=== PATIENT | female | born 1960 | race American Indian/Alaskan Native ===

== ENCOUNTER 2018-08-15 15:28 | Observation (INO) | payer OTHER ==
--- OUTSIDE RECORDS SUMMARY | 2018-08-15 15:31 | XMS REPORT | Continuity of Care Document ---
:1960 Author Organization [facility] Care Team Providers Name Role Phone MD Chely, Art Unavailable Unavailable Insurance Providers Payer name Policy type / Coverage Policy ID Covered democrat ID Policy Blanco type UNLISTED COMM CARRIER SECONDAR PPO PRIMARY UNLISTED COMM CARRIER SECONDAR HUMANA - [facility] CODY AND [employer] ( SUPPLEMENT) CODY AND [employer] ( SUPPLEMENT) Encounters Encounter Performer Location Date Lab Report Art MD Chely [facility] Medical [facility] Jun 20, 2014 Practice Allergies, Adverse Reactions, Alerts Type Substance Reaction Status Food allergy SIMVASTATIN Active Problems Problem Effective Dates Problem Status CHEST PAIN Jan 19, 2012 Active ANXIETY Jan 19, 2012 Active SLEEP DEPRIVATION Jan 19, 2012 Active MENOPAUSAL SYNDROME Jan 19, 2012 Active GLOSSITIS Sep 27, 2012 Inactive PREMATURE VENTRICULAR CONTRACTIONS Jun 20, 2014 Active DIZZINESS Jun 20, 2014 Active ABDOMINAL PAIN RIGHT LOWER QUADRANT Jun 20, 2014 Active Procedures Date Description Comments August 11, 2011 mammogram Done August 11, 2011 vaginal Pap smear results Done August 11, 2011 vaginal Pap smear results Complete Jan 19, 2012 smoking status never smoker Jun 20, 2014 smoking status Never smoker Medications Medication Instructions Start Date Status NECON (28) 1-35 MG-MCG TABS 1 PO daily Inactive MULTIVITAMINS CAPS 1 cap po once daily Jun 20, 2014 Active [facility] MAGNESIUM TABS 1 tab po once daily Jun 20, 2014 Active CALCIUM CAPS 1 tab po once daily Jun 20, 2014 Active ZINC TABS 1 tab po once daily Jun 20, 2014 Active Immunizations Vaccine Date Status dT (Diphtheria and Tetanus) booster given Feb 20, 1997 completed TB-PPD (tuberculin purified protein derivative), intradermal Nov 13, 2007 completed administration influenza immunization (Flu Vax) has been administered Jan 19, 2012 completed Vital Signs Date Description Test Result Jan 19, 2012 height E&M - 8302-2 HEIGHT 66 in Jan 19, 2012 weight E&M - 3141-9 WEIGHT 195.6 lb Jan 19, 2012 temperature E&M TEMPERATURE 97.8 deg f Jan 19, 2012 pulse rate E&M - 8867-4 PULSE RATE 80 /min Jan 19, 2012 blood pressure, systolic - 8480-6 BP SYSTOLIC 132 mm Hg Jan 19, 2012 blood pressure, diastolic - 8462-4 BP DIASTOLIC 78 mm Hg Jan 19, 2012 respiratory rate E&M - 9279-1 RESP RATE 20 /min Sep 27, 2012 weight E&M - 3141-9 WEIGHT 207 lb Sep 27, 2012 temperature E&M TEMPERATURE 97.9 deg f Sep 27, 2012 pulse rate E&M - 8867-4 PULSE RATE 68 /min Sep 27, 2012 blood pressure, systolic - 8480-6 BP SYSTOLIC 140 mm Hg Sep 27, 2012 blood pressure, diastolic - 8462-4 BP DIASTOLIC 92 mm Hg Sep 27, 2012 respiratory rate E&M - 9279-1 RESP RATE 14 /min Jun 20, 2014 weight E&M - 3141-9 WEIGHT 200 lb Jun 20, 2014 temperature E&M TEMPERATURE 98.1 deg f Jun 20, 2014 pulse rate E&M - 8867-4 PULSE RATE 68 /min Jun 20, 2014 blood pressure, systolic - 8480-6 BP SYSTOLIC 147 mm Hg Jun 20, 2014 blood pressure, diastolic - 8462-4 BP DIASTOLIC 96 mm Hg Jun 20, 2014 respiratory rate E&M - 9279-1 RESP RATE 16 /min Jun 20, 2014 blood pressure, systolic, second observation BP SYS #2 140 mm Hg Jun 20, 2014 blood pressure, diastolic, second observation BP MARIBETH #2 84 mm Hg Results Date Description Test Name Value Reference Interpretation Status Sep 17, thyroid TSH 1.37 uIU/mL 2012 stimulating hormone, serum August 10, vaginal Pap smear PAP SMEAR Done null 2011 results August 10, vaginal Pap smear PAP SMEAR Complete null 2011 results
--- OUTSIDE RECORDS SUMMARY | 2018-08-15 15:31 | XMS REPORT | Continuity of Care Document ---
:1960 Author Organization [facility] Care Team Providers Name Role Phone MD Chely, Art Unavailable Unavailable Insurance Providers Payer name Policy type / Coverage Policy ID Covered green party ID Policy Blanco type UNLISTED COMM CARRIER SECONDAR PPO PRIMARY UNLISTED COMM CARRIER SECONDAR HUMANA - [facility] CODY AND [employer] ( SUPPLEMENT) CODY AND [employer] ( SUPPLEMENT) Encounters Encounter Performer Location Date Lab Report Art MD Chely [facility] Medical [facility] Jun 20, 2014 Practice Allergies, [...] Description Test Name Value Reference Interpretation Status Jun 20, hemoglobin, blood HGB 15.6 g/dL 12.0-15.0 High 2014Jun 20, hematocrit, blood HCT 46.8 % 35.0-43.8 High 2014Sep 17, thyroid TSH 1.37 uIU/mL 2013 stimulating hormone, serum Jun 20, sodium, serum SODIUM 144 mmol/L 136-142 High 2014Jun 20, potassium, serum POTASSIUM 4.1 mmol/L 3.3-5.0 2014Jun 20, urea nitrogen, BUN 11 mg/dL 8-20 2014Jun 20, creatinine, serum CREATININE 0.66 mg/dL 0.46-1.20 2014Jun 20, calcium, serum CALCIUM 10.3 mg/dL 8.8-10.0 High 2014Jun 20, cholesterol, CHOLESTEROL 218 mg/dl 120-200 High 2014Jun 20, HDL cholesterol, HDL 46 mg/dl 31-79 2014 serum Jun 20, LDL cholesterol, LDL 131 mg/dl 0-130 High 2015 serum Jun 20, magnesium, serum MAGNESIUM 2.1 mg/dL 1.9-2.5 2014Jun 20, thyroid TSH 0.84 uIU/mL 0.34-5.60 2014 stimulating hormone, serum August 10, vaginal Pap smear PAP SMEAR Done null 2011 results August 10, vaginal Pap smear PAP SMEAR Complete null 2011 results
--- OUTSIDE RECORDS SUMMARY | 2018-08-15 15:31 | XMS REPORT | Continuity of Care Document ---
:1960 Author Organization Interface Problems Problem Status Onset Classification Date Comments Source Date Reported Z12.31 - ENCNTR Active 10/30/19 [facility] SCREEN 17 [place] MAMMOGRAM FOR MA BODY MASS INDEX Active 09/04/19 Condition 09/03/2014 Medical 32.0-32.9, 15 Group ADULT FRACTURE, Active 09/04/19 Condition 09/03/2014 Medical METATARSUS 15 Group Closed fracture Active 09/04/19 Problem 08/09/2018 Data migrated MH [facility] of metatarsal 15 from [facility] bone<sup>1</sup [facility] [place], > 10/16/14. Medical Group CERVICAL POLYP Active 07/05/19 Condition 09/03/2014 Medical 15 Group OVARIAN CYST, Active 07/05/19 Condition 09/03/2014 Medical RIGHT 15 Group WELL WOMAN Active 07/05/19 Condition 09/03/2014 Medical 15 Group HYPERTENSION - Active 07/05/19 Condition 09/03/2014 Medical BENIGN 15 Group ESSENTIAL UTERINE FIBROID Active 07/05/19 Condition 09/03/2014 Medical 15 Group Cyst of Active 07/05/19 Problem 08/09/2018 Data migrated MH [facility] ovary<sup>2</putnam 15 from [facility] p> [facility] [place], 10/16/14. Medical Group Osteoporosis<putnam Active 07/05/19 Problem 08/09/2018 Data migrated MH [facility] p>4, 5</sup> 15 from [facility] [place], 10/16/14. Medical Group Polyp of Active 07/05/19 Problem 08/09/2018 Data migrated MH [facility] cervix<sup>6</s 15 from [facility] up> [facility] [place], 10/16/14. Medical Group Uterine Active 07/05/19 Problem 08/09/2018 Data migrated MH [facility] leiomyoma<sup>7 15 from [facility] , 8</sup> [place], 10/16/14. Medical Group Well female Active 07/05/19 Problem 08/09/2018 Data migrated [facility] adult<sup>10, 15 from [facility] 11</sup> [facility] [place], 10/16/14. Medical Group PREMATURE Active 06/21/19 Condition 09/03/2014 Medical VENTRICULAR 15 Group CONTRACTIONS DIZZINESS Active 06/21/19 Condition 09/03/2014 Medical 15 Group ABDOMINAL PAIN Active 06/21/19 Condition 09/03/2014 Medical RIGHT LOWER 15 Group QUADRANT Dizziness<sup>3 Active 06/21/19 Problem 08/09/2018 Data migrated [facility] </sup> 15 from [facility] [place], 10/16/14. Medical Group Ventricular Active 06/21/19 Problem 08/09/2018 Data migrated [facility] premature 15 from [facility] beats<sup>9</putnam [facility] [place], p> 10/16/14. Medical Group GLOSSITIS Inactive 09/28/19 Condition 09/03/2014 Medical 13 Group CHEST PAIN Active 01/19/20 Condition 09/03/2014 Medical 12 Group ANXIETY Active 01/19/20 Condition 09/03/2014 Medical 12 Group SLEEP Active 01/19/20 Condition 09/03/2014 Medical DEPRIVATION 12 Group MENOPAUSAL Active 01/19/20 Condition 09/03/2014 Medical SYNDROME 12 Group Obesity Active Problem 08/09/2018 [facility] [place], Medical Group Medications Medication Details Route Status Patient Ordering Order Source Instructions Provider Date benazepril 20 mg See Active oral tablet Instructions 018 Medical , TAKE 1 Group TABLET BY MOUTH DAILY, # 90 tab, 1 Refill(s), Pharmacy: [facility] amLODIPine 5 mg See No oral tablet Instructions Longer 018 Medical , TAKE 1 Active Group TABLET BY MOUTH DAILY, # 90 tab, 1 Refill(s), Pharmacy: [facility] pantoprazole 40 40 mg=1 tab, Active mg oral enteric PO, Daily, # 018 Medical coated tablet 30 tab, 1 Group Refill(s), Pharmacy: [facility] [id number] latanoprost 0.05 1 drp, QPM, Active MG/ML Ophthalmic 0 Refill(s) 018 Medical Solution Group PreserVision PO, Daily, 0 Active AREDS 2 Refill(s) 018 Medical Group benazepril 20 mg See No oral tablet Instructions Longer 018 Medical , # 90 tab, Active Group TAKE 1 TABLET BY MOUTH DAILY, Pharmacy: [facility] [id number] Ondansetron 8 MG 8 mg=1 tab, Active Disintegrating PO, TID, PRN 018 Medical Tablet [Zofran] Nausea and Group Vomiting, Dissolve tab under tongue, # 10 tab, 0 Refill(s), Pharmacy: [facility] [id number] Penicillin V 500 mg=1 No Potassium 500 MG tab, PO, Longer 018 Medical Oral Tablet Q8H, X 10 Active Group day, # 30 tab, 0 Refill(s), Pharmacy: [facility] [id number] magnesium amino PO, 0 Active acid chelate Refill(s) 018 Medical Group BENAZEPRIL HCL 10 1 tablet Active MG TABS daily 015 Medical Group MULTIVITAMINS 1 cap po Active CAPS once daily 015 Medical Group [facility] MAGNESIUM 1 tab po Active MH TABS once daily 015 Medical Group CALCIUM CAPS 1 tab po Active once daily 015 Medical Group ZINC TABS 1 tab po Active once daily 015 Medical Group NECON 1/35 (28) 1 PO daily No 1-35 MG-MCG TABS Longer 012 Medical Active Group Allergies, Adverse Reactions, Alerts Substance Category Reaction Severity Reaction Status Date Comments Source type Reported SIMVASTATIN Food SIMVASTATIN allergy Medical Group simvastatin Assertion Drug allergy Active Medical Group Immunizations Immunization Date Site Status Last Comments Source Given Updated influenza virus Left completed [facility] Medical vaccine, 8 Deltoid Comment: Group inactivated<sup>1< Observed for /sup> 15 minutes with no adverse reactions noted. influenza virus completed [facility] OPID vaccine, 6 History: Sugar inactivated<sup>1< Fluvirin - Land, /sup> [facility] Group influenza virus completed [facility] Medical vaccine, 6 History: Group inactivated<sup>2< Fluvirin - /sup> [facility] influenza completed Medical immunization (Flu 2 Group Vax) has been administered influenza virus completed [facility] OPID vaccine, 2 [facility], Medical Group TB-PPD (tuberculin completed [facility] purified protein 8 Group derivative), intradermal administration dT (Diphtheria and completed Medical Tetanus) booster 7 Group given tetanus-diphtheria completed [facility] OPID toxoids 7 [place], Medical Group Results Order Name Results Value Reference Date Interpretation Comments Source Range Breast Breast Mammo - BREAST MAMMO SCRN MASHA INCL CAD MA 11/05 - [facility] Mammo Scrn Scrn MASHA incl /2016 - [facility] MASHA incl CAD MA BILATERAL DIGITAL SCREENING MAMMOGRAM WITH CAD: 11/05/2016 [facility] CAD MA CLINICAL: Annual Physical/Z00.00. Read by: Ely Wilson MD Dictated Date/time: 11/05/16 12:27 Electronically Signed by: Ely Wilson MD 11/05/16 12:27 FINAL REPORT Current study was evaluated with a Computer Aided Detection (CAD) system. Comparison is made to exams dated: 07/29/2014 mammogram - [facility], 08/11/2011 mammogram and 10/28/2010 mammogram - [facility]. There are scattered fibroglandular densities in both breasts. Findings: No significant masses, calcifications, or other findings are seen in either breast. There has been no significant interval change. IMPRESSION: BENIGN There is no mammographic evidence of malignancy. A 1 year screening mammogram is recommended. Professional services are provided by the [facility]. Ely moncada/adin:11/05/2016 12:27:05 [place]: Carina Cruz RT(R), [facility] [place] exam [place] [id number] [address] [facility] [address]. letter sent: Normal exam Mammogram BI-RADS: 2 Benign Chemistry SODIUM 144 mmol/L 136 - 142 06/20 Medical Group Chemistry POTASSIUM 4.1 mmol/L 3.3 - 5.0 06/20 Medical Group Chemistry BUN 11 mg/dL 8 - 20 06/20 Medical Group Chemistry CREATININE 0.66 mg/dL 0.46 - 06/20 1.20 /2014 Medical Group Chemistry CALCIUM 10.3 mg/dL 8.8 - 10.0 06/20 Medical Group Chemistry CHOLESTEROL 218 mg/dl 120 - 200 06/20 Medical Group Chemistry HDL 46 mg/dl 31 - 79 06/20 Medical Group Chemistry LDL 131 mg/dl 0 - 130 06/20 Medical Group Chemistry MAGNESIUM 2.1 mg/dL 1.9 - 2.5 06/20 Medical Group Chemistry TSH 0.84 0.34 - 06/20 uIU/mL 5.60 /2014 Medical Group Hematology HGB 15.6 g/dL 12.0 - 06/20 15.0 Medical Group Hematology HCT 46.8 % 35.0 - 06/20 43.8 Medical Group Chemistry TSH 1.37 09/17 uIU/mL /2012 Medical Group Chemistry TSH 1.37 09/17 uIU/mL /2012 Medical Group Chemistry CHOLESTEROL 218 mg/dl 01/18 Medical Group Chemistry TRIGLYCERIDE 175 mg/dl 01/18 Medical Group Chemistry HDL 43 mg/dl 01/18 Medical Group Chemistry LDL 140 mg/dl 01/18 Medical Group Chemistry TSH 0.96 01/18 uIU/mL Medical Group Jewel Inspector PAP SMEAR Done 08/10 Medical Group Jewel Inspector PAP SMEAR Done 08/10 Medical Group Jewel Inspector PAP SMEAR Done 08/10 Medical Group Jewel Inspector PAP SMEAR Complete 08/10 Medical Group Jewel Inspector PAP SMEAR Complete 08/10 Medical Group Jewel Inspector PAP SMEAR Complete 08/10 Medical Group Chemistry CHOLESTEROL 203 mg/dl 10/16 Medical Group Chemistry TRIGLYCERIDE 248 mg/dl 10/16 Medical Group Chemistry HDL 41 mg/dl 10/16 Medical Group Chemistry LDL 112 mg/dl 10/16 Medical Group Chemistry TSH 0.94 10/16 uIU/mL Medical Group Vital Signs Vital Sign Value Date Comments Source Weight 81.932 01/20/2018 Medical Group BMI Calculated 29.15 01/20/2018 Medical Group Temperature Oral (F) 98.6 F 01/20/2018 Medical Group Heart Rate 69 01/20/2018 Medical Group Height 167.64 cm 01/20/2018 [facility] Systolic (mm Hg) 125 01/20/2018 [facility] Diastolic (mm Hg) 85 01/20/2018 Medical Group Weight 83.75 07/12/2017 Medical Group BMI Calculated 29.35 07/12/2017 [facility] Height 168.91 cm 07/12/2017 Medical Group Heart Rate 93 07/12/2017 [facility] Systolic (mm Hg) 128 07/12/2017 [facility] Diastolic (mm Hg) 85 07/12/2017 Medical Group Weight 198.4 09/03/2014 Medical Group Temperature Oral (F) 98.1 F 09/03/2014 Medical Group Respitory Rate 16 09/03/2014 Medical Group Heart Rate 74 09/03/2014 [facility] Systolic (mm Hg) 123 09/03/2014 [facility] Diastolic (mm Hg) 83 09/03/2014 Medical Group Weight 200 07/04/2014 Medical Group Temperature Oral (F) 98.0 F 07/04/2014 Medical Group Respitory Rate 16 07/04/2014 Medical Group Heart Rate 80 07/04/2014 [facility] Systolic (mm Hg) 158 07/04/2014 [facility] Diastolic (mm Hg) 92 07/04/2014 Medical Group Weight 200 06/20/2014 Medical Group Temperature Oral (F) 98.1 F 06/20/2014 Medical Group Heart Rate 68 06/20/2014 Medical Group Systolic (mm Hg) 147 06/20/2014 Medical Group Diastolic (mm Hg) 96 06/20/2014 Medical Group Respitory Rate 16 06/20/2014 Medical Group Weight 207 09/27/2012 Medical Group Temperature Oral (F) 97.9 F 09/27/2012 Medical Group Heart Rate 68 09/27/2012 Medical Group Systolic (mm Hg) 140 09/27/2012 Medical Group Diastolic (mm Hg) 92 09/27/2012 Medical Group Respitory Rate 14 09/27/2012 Medical Group Height 66 01/19/2012 Medical Group Weight 195.6 01/19/2012 Medical Group Temperature Oral (F) 97.8 F 01/19/2012 Medical Group Heart Rate 80 01/19/2012 Medical Group Systolic (mm Hg) 132 01/19/2012 Medical Group Diastolic (mm Hg) 78 01/19/2012 Medical Group Respitory Rate 20 01/19/2012 Medical Group Encounters Location Location Encounter Encounter Reason Attending ADM DC Status Source Details Type Number For Provider Date Date Visit [facility] Lab Report [id number] Art 06/20 06/20 [place] [facility] [address] Chely, /2014 Meron Arora MD [facility] Practice [facility] Lab Report [id number] Art 06/20 06/20 [place] [facility] [address] Mitz[address], /2014 Meron Arora MD [facility] Practice [facility] Outpt Diag [id number] Art 06/21 06/22 [facility] Outpatient Services [facility] /2014 [place] [facility] [place] [facility] Office [id number] Art 07/04 07/04 [place] Visit 1290 Mitzi, /2014 Meron Arora MD [facility] Practice [facility] Lab Report [id number] Art 07/04 07/04 [place] [facility] 4060 [address], /2014 Meron Arora MD [facility] Practice [facility] Outpt Diag [id number] Art 07/29 07/30 [facility] Outpatient Services /2014 [place] [facility] [place] [facility] Office [id number] Art 09/03 09/03 [place] [facility] Visit 3920 Chely, /2014 Meron Arora MD [facility] Practice Outpatient [id number] ART 05/14 Active [facility] /2015 [place] Outpatient [id number] ART 06/19 Active [facility] [place] Outpatient [id number] ART 07/15 [facility] [place] Outpatient [id number] ART 08/14 [facility] [place] Outpatient [id number] ART 09/30 [facility] Outpt Diag [id number] Art 11/05 11/06 [facility] Outpatient Services [facility] /2016 [place] [facility] [place] Outpatient [id number] PHUC 07/12 Active [facility] Outpatient [id number] Art 07/12 07/13 Primary [facility] /2017 [facility] [place] [facility] Phone [id number] 12/01 12/03 Primary [facility] /2017 [facility] [place] Outpatient [id number] JERECIA 01/20 Active [facility] [place] [facility] Outpatient [id number] Jerecia 01/20 01/21 Primary [place] /2017 [facility] [place] Outpatient [id number] PHUC 02/02 [facility] [place] Procedures Procedure Code Date Perfomer Comments Source Appendectomy [id number] 05/03/2015 [facility] [place] Appendectomy [id number] 05/03/2015 Medical Group mammogram 19247 07/30/2014 Normal Medical Bilateral Group vaginal Pap smear 73872 08/11/2011 Done Medical results Group mammogram 90618 08/11/2011 Done Medical Group vaginal Pap smear 53507 08/11/2011 Complete Medical results Group Dilatation and [id number] [facility] [place] Tooth extraction, [id number] [facility] [place] Dilatation and [id number] Medical curettage Group Tooth extraction, [id number] Medical multiple Group
--- OUTSIDE RECORDS SUMMARY | 2018-08-15 15:32 | XMS REPORT | Continuity of Care Document ---
:1960 Author Organization [facility] Care Team Providers Name Role Phone MD Chely, Art Unavailable Unavailable Insurance Providers Payer name Policy type / Coverage Policy ID Covered libertarian ID Policy Blanco type UNLISTED COMM CARRIER SECONDAR PPO PRIMARY UNLISTED COMM CARRIER SECONDAR [employer]MANA - [facility] CODY AND [employer] ( SUPPLEMENT) CODY AND [employer] ( SUPPLEMENT) Encounters Encounter Performer Location Date Office Visit Ho Mo MD [facility] Medical [facility] Practice Allergies, Adverse Reactions, Alerts Type Substance [...] RIGHT LOWER QUADRANT Jun 20, 2014 Active CERVICAL POLYP Jul 04, 2014 Active OVARIAN CYST, RIGHT Jul 04, 2014 Active WELL WOMAN Jul 04, 2014 Active HYPERTENSION - BENIGN ESSENTIAL Jul 04, 2014 Active UTERINE FIBROID Jul 04, 2014 Active BODY MASS INDEX 32.0-32.9, ADULT September 03, 2014 Active FRACTURE, METATARSUS September 03, 2014 Active Procedures Date Description Comments August 11, 2011 mammogram Done August 11, 2011 vaginal Pap smear results Done August 11, 2011 vaginal Pap smear results Complete Jan 19, 2012 smoking status never smoker Jun 20, 2014 smoking status Never smoker Jul 04, 2014 smoking status Never smoker September 03, 2014 smoking status Never smoker Jul 30, 2014 mammogram Normal Bilateral Medications Medication Instructions Start Date Status NECON (28) 1-35 MG-MCG TABS 1 PO daily Inactive MULTIVITAMINS CAPS 1 cap po once daily Jun 20, 2014 Active [facility] MAGNESIUM TABS 1 tab po once daily Jun 20, 2014 Active CALCIUM CAPS 1 tab po once daily Jun 20, 2014 Active ZINC TABS 1 tab po once daily Jun 20, 2014 Active BENAZEPRIL HCL 10 MG TABS 1 tablet daily Jul 04, 2014 Active Immunizations Vaccine Date Status dT [...] observation BP MARIBETH #2 84 mm Hg Jul 04, 2014 weight E&M - 3141-9 WEIGHT 200 lb Jul 04, 2014 temperature E&M TEMPERATURE 98.0 deg f Jul 04, 2014 respiratory rate E&M - 9279-1 RESP RATE 16 /min Jul 04, 2014 pulse rate E&M - 8867-4 PULSE RATE 80 /min Jul 04, 2014 blood pressure, systolic - 8480-6 BP SYSTOLIC 158 mm Hg Jul 04, 2014 blood pressure, diastolic - 8462-4 BP DIASTOLIC 92 mm Hg September 03, 2014 weight E&M - 3141-9 WEIGHT 198.4 lb September 03, 2014 temperature E&M TEMPERATURE 98.1 deg f September 03, 2014 respiratory rate E&M - 9279-1 RESP RATE 16 /min September 03, 2014 pulse rate E&M - 8867-4 PULSE RATE 74 /min September 03, 2014 blood pressure, systolic - 8480-6 BP SYSTOLIC 123 mm Hg September 03, 2014 blood pressure, diastolic - 8462-4 BP DIASTOLIC 83 mm Hg Results Date Description Test Name Value Reference Interpretation Status Jun 20, hemoglobin, blood HGB 15.6 g/dL 12.0-15.0 High 2014Jun 20, hematocrit, blood HCT 46.8 % 35.0-43.8 High 2014Sep 17, thyroid TSH 1.37 uIU/mL 2012 stimulating hormone, serum Jun 20, sodium, serum SODIUM 144 mmol/L 136-142 High 2014Jun 20, potassium, serum POTASSIUM 4.1 mmol/L 3.3-5.0 2014Jun 20, urea nitrogen, BUN 11 mg/dL 8-20 2014 blood Jun 20, creatinine, serum CREATININE 0.66 mg/dL 0.46-1.20 2014Jun 20, calcium, serum CALCIUM 10.3 mg/dL 8.8-10.0 High 2014Jun 20, cholesterol, CHOLESTEROL 218 mg/dl 120-200 High 2014 serum Jun 20, HDL cholesterol, HDL 46 mg/dl 31-79 2014 serum Jun 20, LDL cholesterol, LDL 131 mg/dl 0-130 High 2014 serum Jun 20, magnesium, serum MAGNESIUM 2.1 mg/dL 1.9-2.5 2014Jun 20, thyroid TSH 0.84 uIU/mL 0.34-5.60 2014 stimulating hormone, serum Jan 18, cholesterol, CHOLESTEROL 218 mg/dl 2011 serum Jan 18, triglyceride, TRIGLYCERIDE 175 mg/dl 2011 serum, fasting Jan 18, HDL cholesterol, HDL 43 mg/dl 2011 serum Jan 18, LDL cholesterol, LDL 140 mg/dl 2011 serum Jan 18, thyroid TSH 0.96 uIU/mL 2011 stimulating hormone, serum Oct 16, cholesterol, CHOLESTEROL 203 mg/dl 2010 serum Oct 16, triglyceride, TRIGLYCERIDE 248 mg/dl 2010 serum, fasting Oct 16, HDL cholesterol, HDL 41 mg/dl 2010 serum Oct 16, LDL cholesterol, LDL 112 mg/dl 2010 serum Oct 16, thyroid TSH 0.94 uIU/mL 2011 stimulating hormone, serum August 10, vaginal Pap smear PAP SMEAR Done null 2011 results August 10, vaginal Pap smear PAP SMEAR Complete 2011 results
--- OUTSIDE RECORDS SUMMARY | 2018-08-15 15:32 | XMS REPORT | Summary of Care ---
:1960 Author Encounter [facility] Pearlr_don(JACKIE) [id number] Date(s): 07/29/14 - 07/29/14 [facility] Imaging [address] Discharge Disposition: Home Physician Attending: Ho Mo MD Vital Signs No data available for this section Problem List No data available for this section Allergies, Adverse Reactions, Alerts No data available for this section Medications No data available for this section Results No data available for this section Immunizations No data available for this section Procedures No data available for this section Social History No data available for this section Assessment and Plan No data available for this section
--- OUTSIDE RECORDS SUMMARY | 2018-08-15 15:32 | XMS REPORT | Summary of Care ---
:1960 Author Organization [facility] Address [address] [place] [address]- Encounter HQ Candida_don(FIN) [id number] Date(s): 07/12/17 - 07/12/[address] [address]- [phone] Discharge Disposition: Home or Self Care Attending Physician: Ho Mo MD Vital Signs Most recent to oldest [Reference Range]: 1 Height 168.91 cm (07/12/17 7:31 AM) Blood Pressure [90-140/60-90 mmHg] 128/85 mmHg (07/12/17 7:31 AM) Peripheral Pulse Rate [60-100 bpm] 93 bpm (07/12/17 7:31 AM) Weight 83.75 kg (07/12/17 7:31 AM) Body Mass Index 29.35 m2 (07/12/17 7:31 AM) Problem List Condition Effective Dates Status Health Status Informant Closed fracture of metatarsal bone1 09/03/14 Active Cyst of ovary2 07/04/14 Active Dizziness3 06/20/14 Active Obesity(Confirmed) Active Osteoporosis4, 5 07/04/14 Active Polyp of cervix6 07/04/14 Active Uterine leiomyoma7, 8 07/04/14 Active Ventricular premature beats9 06/20/14 Active Well female adult10, 11 07/04/14 Active 1Data migrated from [employer] on 10/16/14.2Data migrated from [employer] on 10/16/14.3Data migrated from [employer] on 10/16/14.4Data migrated from [employer] on 10/16/14.5Data migrated from [employer] on 10/16/14.6Data migrated from [employer] on 10/16/14.7Data migrated from [employer] on 10/16/14.8Data migrated from [employer] on 10/16/14.9Data migrated from [employer] on .10Data migrated from [employer] on 10/16/14.11Data migrated from [employer] on 10/16/14. Allergies, Adverse Reactions, Alerts Substance Reaction Severity Status simvastatin Active Medications magnesium amino acids chelate PO, 0 Refill(s) Start Date: 07/12/17 Status: Orderedpenicillin V potassium 500 mg oral tablet 500 mg=1 tab, PO, Q8H, X 10 day, # 30 tab, 0 Refill(s), Pharmacy: [facility] [id number] Start Date: 07/12/17 Stop Date: 07/22/17 Status: CompletedZofran ODT 8 mg oral tablet, disintegrating 8 mg=1 tab, PO, TID, PRN Nausea and Vomiting, Dissolve tab under tongue, # 10 tab, 0 Refill(s), Pharmacy: [facility] [id number] Start Date: 07/12/17 Stop Date: 07/16/17 Status: Ordered Results No data available for this section Immunizations Given and Recorded Vaccine Date Status Refusal Reason influenza virus vaccine, inactivated1 05/04/15 Recorded influenza virus vaccine, inactivated 01/19/12 Recorded tetanus-diphtheria toxoids 02/20/97 Recorded 1Location History: [facility] Procedures Procedure Date Related Diagnosis Body Site Status Appendectomy 05/03/15 Completed Dilatation and curettage Completed Tooth extraction, multiple Completed Social History Social History Type Response Smoking Status Never smoker; Exposure to Tobacco Smoke None; Cigarette Smoking Last 365 Days No; Reg Smoking Cessation Counseling No entered on: 07/12/17 Assessment and Plan No data available for this section
--- OUTSIDE RECORDS SUMMARY | 2018-08-15 15:32 | XMS REPORT | Continuity of Care Document ---
:1960 Author Organization [facility] Care Team Providers Name Role Phone MD Chely, Art Unavailable Unavailable Insurance Providers Payer name Policy type / Coverage Policy ID Covered green party ID Policy Blanco type UNLISTED COMM CARRIER SECONDAR PPO PRIMARY UNLISTED COMM CARRIER SECONDAR [employer] - [facility] CODY AND EARTHTORY ( SUPPLEMENT) CODY AND EARTHTORY ( SUPPLEMENT) Encounters Encounter Performer Location Date Lab Report Art MD Chely [facility] Jul 04, 2014 Practice Allergies, Adverse Reactions, Alerts Type [...] Active UTERINE FIBROID Jul 04, 2014 Active Procedures Date Description Comments August 11, 2011 mammogram Done August 11, 2011 vaginal Pap smear results Done August 11, 2011 vaginal Pap smear results Complete Jan 19, 2012 smoking status never smoker Jun 20, 2014 smoking status Never smoker Jul 04, 2014 smoking status Never smoker Medications Medication [...] - 8462-4 BP DIASTOLIC 92 mm Hg Results Date Description Test Name [...] serum Oct 16, thyroid TSH 0.94 uIU/mL 2010 stimulating hormone, serum August 10, vaginal Pap smear PAP SMEAR Done null 2011 results August 10, vaginal Pap smear PAP SMEAR Complete null 2011 results
--- OUTSIDE RECORDS SUMMARY | 2018-08-15 15:32 | XMS REPORT | Summary of Care ---
:1960 Author Organization [facility] [place] Address [address] [place], [place] [address]- Encounter HQ Encntr_alias(FIN) [id number] Date(s): 11/05/16 - 11/05/16 [facility] [place] [address]- Discharge Disposition: Home or Self Care Attending Physician: Ho Mo MD Vital Signs No data available for this section Problem List Condition Effective Dates Status Health [...] Substance Reaction Severity Status simvastatin Active Medications No data available for this section Results No data available for this section Immunizations Given and Recorded Vaccine Date Status Refusal Reason influenza virus vaccine, inactivated1 05/04/15 Recorded influenza virus vaccine, inactivated 01/19/12 Recorded tetanus-diphtheria toxoids 02/20/97 Recorded 1Location History: [facility] Procedures Procedure Date Related Diagnosis Body Site Appendectomy 05/03/15 Dilatation and curettage Tooth extraction, multiple Social History Social History Type Response Smoking Status Never smoker; Exposure to Tobacco Smoke None; Cigarette Smoking Last 365 Days No; Reg Smoking Cessation Counseling No Assessment and Plan No data available for this section
--- OUTSIDE RECORDS SUMMARY | 2018-08-15 15:32 | XMS REPORT | Continuity of Care Document ---
:1960 Author Organization [facility] Care Team Providers Name Role Phone MD Chely, Art Unavailable Unavailable Insurance Providers Payer name Policy type / Coverage Policy ID Covered alliance party ID Policy Blanco type UNLISTED COMM CAR[employer]ER SECONDAR PPO PRIMARY UNLISTED COMM CARRIER SECONDAR [employer] - [facility] CODY AND Priceline ( SUPPLEMENT) CODY AND [employer] ( SUPPLEMENT) Encounters Encounter Performer Location Date Office Visit Ho Mo MD [facility] Jun Practice Allergies, Adverse Reactions, Alerts Type Substance [...]
--- OUTSIDE RECORDS SUMMARY | 2018-08-15 15:32 | XMS REPORT | Summary of Care ---
:1960 Author Encounter HQ Encntr_don(FIN) [id number] Date(s): 06/21/14 - 06/21/14 [facility] Outpatient Imaging [address] Discharge Disposition: Home Physician Attending: Ho [...]
--- OUTSIDE RECORDS SUMMARY | 2018-08-15 15:32 | XMS REPORT | Summary of Care ---
:1960 Author Organization [facility] Address [address] [place] [address]- Encounter HQ Candida_don(FIN) [id number] Date(s): 12/01/17 - 12/02/[address] [address]- [phone] Vital Signs No data available for this [...] Substance Reaction Severity Status simvastatin Active Medications benazepril 20 mg oral tablet See Instructions, # 90 tab, TAKE 1 TABLET BY MOUTH DAILY, Pharmacy: [facility] [id number] Start Date: 12/01/17 Stop Date: 01/20/18 Status: Discontinued Results No data available for this section Immunizations Given and Recorded Vaccine Date Status Refusal Reason influenza virus vaccine, inactivated1 01/20/18 Given influenza virus vaccine, inactivated2 05/04/15 Recorded influenza virus vaccine, inactivated 01/19/12 Recorded tetanus-diphtheria toxoids 02/20/97 Recorded 1Result Comment: Observed for 15 minutes with no adverse reactions noted.2Location History: [facility] Procedures Procedure Date Related Diagnosis Body Site Status Appendectomy 05/03/15 Completed Dilatation and curettage Completed Tooth extraction, multiple Completed Social History Social History Type Response Smoking Status Never smoker; Exposure to Tobacco Smoke None; Cigarette Smoking Last 365 Days No; Reg Smoking Cessation Counseling No entered on: 02/02/18 Assessment and Plan No data available for this section
--- OUTSIDE RECORDS SUMMARY | 2018-08-15 15:32 | XMS REPORT | Summary of Care ---
:1960 Author Organization [facility] Address [address] [place] [address]- Encounter HQ Sally(FIN) [id number] Date(s): 01/20/18 - 01/20/[address] [address]- Discharge Disposition: Home or Self Care Attending Physician: Ventura Westbrook MD Vital Signs Most recent to oldest [Reference Range]: 1 Height 167.64 cm (01/20/18 9:46 AM) Temperature Oral [96.4-99.1 DegF] 98.6 DegF (01/20/18 9:46 AM) Blood Pressure [90-140/60-90 mmHg] 125/85 mmHg (01/20/18 9:46 AM) Peripheral Pulse Rate [60-100 bpm] 69 bpm (01/20/18 9:46 AM) Weight 81.932 kg (01/20/18 9:46 AM) Body Mass Index 29.15 m2 (01/20/18 9:46 AM) Problem List Condition Effective Dates Status [...] Substance Reaction Severity Status simvastatin Active Medications amLODIPine 5 mg oral tablet See Instructions, TAKE 1 TABLET BY MOUTH DAILY, # 90 tab, 1 Refill(s), Pharmacy : [facility] Start Date: 01/20/18 Stop Date: 03/09/18 Status: Completedbenazepril 20 mg oral tablet See Instructions, TAKE 1 TABLET BY MOUTH DAILY, # 90 tab, 1 Refill(s), Pharmacy : [facility] Start Date: 01/20/18 Status: Orderedlatanoprost ophthalmic 0.005% solution 1 drp, QPM, 0 Refill(s) Start Date: 01/20/18 Status: Orderedpantoprazole 40 mg oral enteric coated tablet 40 mg=1 tab, PO, Daily, # 30 tab, 1 Refill(s), Pharmacy: [facility] [id number] Start Date: 01/20/18 Status: OrderedPreserVision AREDS 2 PO, Daily, 0 Refill(s) Start Date: 01/20/18 Status: Ordered Results No data available for [...]
[2018-08-15 16:01] LABS: Urine Blood TRACE (NEG); Urine Glucose NEGATIVE (NEG); Urine Protein NEGATIVE (NEG); Urine Specific Gravity 1.015 (1.005-1.030)
[2018-08-15] MEDS ORDERED: NA CHLORIDE 0.9% 1,000 ML ONE (16:20)
[2018-08-15] MEDS ORDERED: ASPIRIN 81 MG CHEWABLE TABLET ONE (16:20)
[2018-08-15 16:25] LABS: Absolute Lymphocytes (CBC) 2.6 K/uL (0.7-4.9); Absolute Monocytes 0.6 K/uL (0.1-1.3); Absolute Neutrophil 3.9 K/uL (1.8-8.0); Basophils % 0.7 % (0-1.3); Eosinophils % 1.8 % (0-4.4); Hematocrit 43.5 % (36.0-45.0); Lymphocytes % 35.8 % (15.3-44.8); MPV 7.4 fL (7.6-11.3); Monocytes % 8.4 % (3.3-12.3); RBC Red Blood Cell Count 4.96 M/uL (3.86-4.86)
--- NOTE | 2018-08-15 16:34 | ER ---
Nurse's Notes [facility] Name: Marlene Traore Age: 57 yrs Sex: Female : 1960 Arrival Date: 08/15/2018 Time: 15:30 Bed 20 Private MD: Diagnosis: Syncope and collapse-near ;Chest pain, unspecified;Essential (primary) hypertension Presentation: 08/15 15:30 Presenting complaint: EMS states: NEAR-SYNCOPE AND HEADACHE AT WORK. Transition of bp care: WORK. Onset of symptoms is unknown. Risk Assessment: Do you want to hurt yourself or someone else? Patient reports no desire to harm self or others. Initial Sepsis Screen: Does the patient meet any 2 criteria? No. Patient's initial sepsis screen is negative. Does the patient have a suspected source of infection? No. Patient's initial sepsis screen is negative. Care prior to arrival: Glucose check: 91. 15:30 Method Of Arrival: EMS: [facility] bp 15:30 Acuity: JESUSITA 3 bp Triage Assessment: 15:32 General: Appears in no apparent distress. comfortable, Behavior is calm, cooperative, bp appropriate for age. Pain: Complains of pain in head. EENT: No deficits noted. Neuro: Level of Consciousness is awake, alert, obeys commands, Oriented to person, place, time, situation, Appropriate for age. Cardiovascular: No deficits noted. Respiratory: Airway is patent Respiratory effort is even, unlabored, Respiratory pattern is regular, symmetrical. GI: No signs and/or symptoms were reported involving the gastrointestinal system. : No signs and/or symptoms were reported regarding the genitourinary system. Derm: No deficits noted. Musculoskeletal: Circulation, motion, and sensation intact. Range of motion: intact in all extremities. Historical: - Allergies: 15:32 Simvastatin; bp - Home Meds: 15:32 amlodipine oral [Active]; benazepril oral oral [Active]; bp - PMHx: 15:32 Hypertension; bp - PSHx: 15:32 Appendectomy; bp - Immunization history:: Adult Immunizations up to date. - Social history:: Smoking status: Patient/guardian denies using tobacco. - Ebola Screening: : Patient negative for fever greater than or equal to 101.5 degrees Fahrenheit, and additional compatible Ebola Virus Disease symptoms Patient denies exposure to infectious person Patient denies travel to an Ebola-affected area in the 21 days before illness onset No symptoms or risks identified at this time. - Family history:: not pertinent. Screenin:35 Abuse screen: Denies threats or abuse. Denies injuries from another. Nutritional bp screening: No deficits noted. Tuberculosis screening: No symptoms or risk factors identified. Fall Risk None identified. Assessment: 15:35 General: SEE TRIAGE NOTE. bp 16:27 Reassessment: ALL CURRENT ORDERS COMPLETED, IVF INFUSING, RESULTS PENDING. bp 17:29 Reassessment: 1ST ATTEMPT TO CALL REPORT. bp 17:53 Reassessment: REPORT TO MED/SURG, TRANSPORT ON HOLD FOR ECHO AT B/S. bp Vital Signs: 15:32 BP 153 / 95; Pulse 91; Resp 20; Temp 97.9; Pulse Ox 98% ; Weight 81.65 kg; bp 16:26 BP 121 / 75; Pulse 81; Resp 13; Pulse Ox 99% ; bp 18:03 BP 137 / 79; Pulse 77; Resp 18; Temp 98.0(O); Pulse Ox 98% on R/A; 5 ED Course: 15:30 Patient arrived in ED. bp 15:31 Triage completed. bp 15:31 Michael Dominique MD is Attending Physician. [facility] 15:32 Arm band placed on. bp 15:35 Patient has correct armband on for positive identification. Bed in low position. Call bp light in reach. Side rails up X2. 15:48 Noel Kirkland, RN is Primary Nurse. bp 16:00 EKG done, by educational technician. reviewed by Michael Dominique MD. [facility] 16:16 Initial lab(s) drawn, by mt, sent to lab. Urine collected: clean catch specimen, clear. mh5 Inserted saline lock: 20 gauge in right antecubital area, using aseptic technique. Blood collected. 16:17 Urine Culture Sent. mh5 16:18 Lipase Sent. mh5 16:18 Basic Metabolic Panel Sent. 5 16:18 CBC with Diff Sent. 5 16:18 LFT's Sent. 5 16:18 Magnesium Sent. 5 16:18 NT PRO-BNP Sent. 5 16:18 PT-INR Sent. 5 16:18 Troponin (emerg Dept Use Only) Sent. [facility] 16:32 Ada Perez MD is Hospitalizing Provider. [facility] 16:45 Chest Single View XRAY In Process Unspecified. EDMS 17:29 No provider procedures requiring assistance completed. Patient admitted, IV remains in bp place. Administered Medications: 16:05 Drug: NS 0.9% 1000 ml Route: IV; Rate: 1 bolus; Site: right antecubital; bp 16:45 Follow up: IV Status: Completed infusion; IV Intake: 1000ml bp 16:05 Drug: Aspirin 162 mg Route: PO; bp 16:35 Follow up: Response: No adverse reaction bp 16:40 Drug: Lovenox 80 mg Route: Sub-Q; Site: right lower abdomen; bp 16:45 Follow up: Response: No adverse reaction bp 16:40 Drug: Rocephin - (cefTRIAXone) 1 grams Route: IVPB; Infused Over: 30 mins; Site: right bp antecubital; 16:44 Follow up: IV Status: Completed infusion; IV Intake: 20ml bp Intake: 16:44 IV: 20ml; Total: 20ml. bp 16:45 IV: 1000ml; Total: 1020ml. bp Outcome: 16:33 Decision to Hospitalize by Provider. [facility] 17:54 Admitted to Tele accompanied by tech, family with patient, via wheelchair, room 210, bp with chart, Report called to JUWAN CROCKETT 17:54 Condition: stable 17:54 Instructed on the need for admit. 18:20 Patient left the ED. bp Signatures: Dispatcher [employer] EDMichael Olivas MD MD cha Martinez, Gill 5 Noel Kirkland, RN RN Roxana Verdugo 3
--- NOTE | 2018-08-15 16:34 | EDPHYS ---
Physician Documentation [facility] Name: Marlene Traore Age: 57 yrs Sex: Female : 1960 Arrival Date: 08/15/2018 Time: 15:30 Bed 20 Private MD: ED Physician Michael Dominique HPI: 08/15 15:53 This 57 yrs old Female presents to ER via EMS with complaints of Near mika Syncope. 15:53 The patient has experienced near-syncope, almost passed out, felt dizzy. Onset: The mika symptoms/episode began/occurred just prior to arrival, today. Duration: This was a single episode, that lasted 20 second(s). Context: the episode(s) was witnessed, by co-worker(s). Associated injury: The patient did not suffer any apparent associated injury. Associated signs and symptoms: Pertinent positives: chest pain. Current symptoms: Currently, the patient is not experiencing any symptoms, the patient feels back to baseline. The patient has not experienced similar symptoms in the past. Historical: - Allergies: 15:32 Simvastatin; bp - Home Meds: 15:32 amlodipine oral [Active]; benazepril oral oral [Active]; bp - PMHx: 15:32 Hypertension; bp - PSHx: 15:32 Appendectomy; bp - Immunization history:: Adult Immunizations up to date. - Social history:: Smoking status: Patient/guardian denies using tobacco. - Ebola Screening: : Patient negative for fever greater than or equal to 101.5 degrees Fahrenheit, and additional compatible Ebola Virus Disease symptoms Patient denies exposure to infectious person Patient denies travel to an Ebola-affected area in the 21 days before illness onset No symptoms or risks identified at this time. - Family history:: not pertinent. ROS: 15:53 Constitutional: Negative for fever, chills, and weight loss, Eyes: Negative for injury, mika pain, redness, and discharge, ENT: Negative for injury, pain, and discharge, Neck: Negative for injury, pain, and swelling, Respiratory: Negative for shortness of breath, cough, wheezing, and pleuritic chest pain, Abdomen/GI: Negative for abdominal pain, nausea, vomiting, diarrhea, and constipation, Back: Negative for injury and pain, : Negative for injury, bleeding, discharge, and swelling, MS/Extremity: Negative for injury and deformity, Skin: Negative for injury, rash, and discoloration, Neuro: Negative for headache, weakness, numbness, tingling, and seizure, Psych: Negative for depression, anxiety, suicide ideation, homicidal ideation, and hallucinations, Allergy/Immunology: Negative for hives, rash, and allergies, Endocrine: Negative for neck swelling, polydipsia, polyuria, polyphagia, and marked weight changes, Hematologic/Lymphatic: Negative for swollen nodes, abnormal bleeding, and unusual bruising. 15:53 Cardiovascular: Positive for chest pain, of the chest. Exam: 15:53 Constitutional: This is a well developed, well nourished patient who is awake, alert, mika and in no acute distress. Head/Face: Normocephalic, atraumatic. Eyes: Pupils equal round and reactive to light, extra-ocular motions intact. Lids and lashes normal. Conjunctiva and sclera are non-icteric and not injected. Cornea within normal limits. Periorbital areas with no swelling, redness, or edema. ENT: Nares patent. No nasal discharge, no septal abnormalities noted. Tympanic membranes are normal and external auditory canals are clear. Oropharynx with no redness, swelling, or masses, exudates, or evidence of obstruction, uvula midline. Mucous membranes moist. Neck: Trachea midline, no thyromegaly or masses palpated, and no cervical lymphadenopathy. Supple, full range of motion without nuchal rigidity, or vertebral point tenderness. No Meningismus. Chest/axilla: Normal chest wall appearance and motion. Nontender with no deformity. No lesions are appreciated. Cardiovascular: Regular rate and rhythm with a normal S1 and S2. No gallops, murmurs, or rubs. Normal PMI, no JVD. No pulse deficits. Respiratory: Lungs have equal breath sounds bilaterally, clear to auscultation and percussion. No rales, rhonchi or wheezes noted. No increased work of breathing, no retractions or nasal flaring. Abdomen/GI: Soft, non-tender, with normal bowel sounds. No distension or tympany. No guarding or rebound. No evidence of tenderness throughout. Back: No spinal tenderness. No costovertebral tenderness. Full range of motion. Skin: Warm, dry with normal turgor. Normal color with no rashes, no lesions, and no evidence of cellulitis. MS/ Extremity: Pulses equal, no cyanosis. Neurovascular intact. Full, normal range of motion. Neuro: Awake and alert, GCS 15, oriented to person, place, time, and situation. Cranial nerves II-XII grossly intact. Motor strength 5/5 in all extremities. Sensory grossly intact. Cerebellar exam normal. Normal gait. Psych: Awake, alert, with orientation to person, place and time. Behavior, mood, and affect are within normal limits. 15:53 Musculoskeletal/extremity: DVT Exam: No signs of deep vein thrombosis. no pain, no swelling, no tenderness, negative Homans' sign noted on exam, no appreciated bluish discoloration, no erythema, no increased warmth. Vital Signs: 15:32 BP 153 / 95; Pulse 91; Resp 20; Temp 97.9; Pulse Ox 98% ; Weight 81.65 kg; bp 16:26 BP 121 / 75; Pulse 81; Resp 13; Pulse Ox 99% ; bp 18:03 BP 137 / 79; Pulse 77; Resp 18; Temp 98.0(O); Pulse Ox 98% on R/A; mh5 MDM: 15:31 Patient medically screened. [facility] 15:55 Data reviewed: vital signs, nurses notes, lab test result(s), EKG, radiologic studies, mika plain films. 08/15 15:47 Order name: Urine Dipstick--Ancillary (enter results); Complete Time: 16:09 08/15 15:53 Order name: Basic Metabolic Panel; Complete Time: 16:49 [facility] 08/15 15:53 Order name: CBC with Diff; Complete Time: 16:34 [facility] 08/15 15:53 Order name: LFT's; Complete Time: 16:49 [facility] 08/15 15:53 Order name: Magnesium; Complete Time: 16:49 [facility] 08/15 15:53 Order name: NT PRO-BNP; Complete Time: 16:49 [facility] 08/15 15:53 Order name: PT-INR; Complete Time: 16:49 [facility] 08/15 15:53 Order name: Troponin (emerg Dept Use Only); Complete Time: 16:49 [facility] 08/15 15:53 Order name: Lipase; Complete Time: 16:49 [facility] 08/15 15:53 Order name: Urine Culture [facility] 08/15 16:12 Order name: Chest Single View XRAY; Complete Time: 17:00 [facility] 08/15 16:59 Order name: Carotid Artery Bilateral EDMS 08/15 15:53 Order name: EKG; Complete Time: 15:54 [facility] 08/15 15:53 Order name: Cardiac monitoring; Complete Time: 16:01 [facility] 08/15 15:53 Order name: EKG - Nurse/Tech; Complete Time: 16:01 [facility] 08/15 15:53 Order name: IV Saline Lock; Complete Time: 16:12 [facility] 08/15 15:53 Order name: Labs collected and sent; Complete Time: 16:12 [facility] 08/15 15:53 Order name: O2 Per Protocol; Complete Time: 16: [facility] 08/15 15:53 Order name: O2 Sat Monitoring; Complete Time: 16: [facility] 08/15 15:53 Order name: Urine Dipstick-Ancillary (obtain specimen); Complete Time: 16:00 [facility] 08/15 16:59 Order name: Echo with Doppler EDMS Administered Medications: 16:05 Drug: NS 0.9% 1000 ml Route: IV; Rate: 1 bolus; Site: right antecubital; bp 16:45 Follow up: IV Status: Completed infusion; IV Intake: 1000ml bp 16:05 Drug: Aspirin 162 mg Route: PO; bp 16:35 Follow up: Response: No adverse reaction bp 16:40 Drug: Lovenox 80 mg Route: Sub-Q; Site: right lower abdomen; bp 16:45 Follow up: Response: No adverse reaction bp 16:40 Drug: Rocephin - (cefTRIAXone) 1 grams Route: IVPB; Infused Over: 30 mins; Site: right bp antecubital; 16:44 Follow up: IV Status: Completed infusion; IV Intake: 20ml bp Disposition: 08/15/18 16:33 Hospitalization ordered by Ada Perez for Observation. Preliminary diagnosis are Syncope and collapse - near , Chest pain, unspecified, Essential (primary) hypertension. - Bed requested for Telemetry/MedSurg (observation). - Status is Observation. bp - Condition is Fair. - Problem is new. - Symptoms have improved. UTI on Admission? Yes Signatures: Dispatcher [employer] EDMS Michael Dominique MD MD cha Fitzgerald, Diane, RN RN df Peltier, Brian, RN RN bp Corrections: (The following items were deleted from the chart) 16:44 15:54 Chest Single View+RAD.RAD.BRZ ordered. EDGA EDGA 16:44 16:09 Chest Pa And Lat (2 Views)+RAD.RAD.BRZ ordered. [facility] EDGA 17:19 16:33 Hospitalization Ordered by Ada Perez MD for Observation. Preliminary df diagnosis is Syncope and collapse - near ; Chest pain, unspecified; Essential (primary) hypertension. Bed requested for Telemetry/MedSurg (observation). Status is Observation. Condition is Fair. Problem is new. Symptoms have improved. UTI on Admission? Yes. mika 18:20 17:19 08/15/2018 16:33 Hospitalization Ordered by Ada Perez MD for Observation. bp Preliminary diagnosis is Syncope and collapse - near ; Chest pain, unspecified; Essential (primary) hypertension. Bed requested for Telemetry/MedSurg (observation). Status is Observation. Condition is Fair. Problem is new. Symptoms have improved. UTI on Admission? Yes. df
[2018-08-15 16:44] LABS: ALT/SGPT 26 U/L (12-78); AST/SGOT 16 U/L (15-37); Alkaline Phosphatase 125 U/L (45-117); BUN Blood Urea Nitrogen 17 mg/dL (7-18); Bicarbonate 27 mmol/L (21-32); Bilirubin Direct < 0.1 mg/dL (0-0.2); Bilirubin Total 0.3 mg/dL (0.2-1.0); Glucose Level 95 mg/dL (74-106); Lipase 241 U/L (73-393); Magnesium 2.4 mg/dL (1.8-2.4); NT PRO-BNP 14 pg/mL (<125); Potassium 3.9 mmol/L (3.5-5.1); Protein, Total 8.1 g/dL (6.4-8.2); Sodium Level 143 mmol/L (136-145); Troponin (Emerg Dept Use Only) < 0.02 ng/mL (0.0-0.045)
[2018-08-15] MEDS ORDERED: CEFTRIAXONE/SWI 1gm 1 GM/10 ML SYR ONE (16:51)
[2018-08-15] MEDS ORDERED: ENOXAPARIN 80 MG/0.8 ML SQ ONE (16:51)
--- NOTE | 2018-08-15 16:55 | RAD REPORT ---
EXAM DESCRIPTION: Cecilio Single View08/15/2018 4:45 pm CLINICAL HISTORY: Chest pain COMPARISON: 2016 FINDINGS: The lungs appear clear of acute infiltrate. The heart is normal size IMPRESSION: No acute abnormalities displayed
[2018-08-15] MEDS: NA CHLORIDE 0.9% 1,000 ML IV SCH ×2 (17:00→18:52)
[2018-08-15 18:19] VITALS: BMI 29.2
[2018-08-15] MEDS ORDERED: ONDANSETRON 4 MG/2 ML VIAL IV PRN (18:19)
--- NOTE | 2018-08-15 18:24 | EKG ---
Test Date: 2018-08-15 Test Time: 16:00:49 [employer]: MARIELLA MEASUREMENT RESULTS: Intervals: Rate: 82 [place]: 144 QRSD: 72 QT: 376 QTc: 439 [place]: P: 44 [place]: 144 QRS: 91 T: 29 INTERPRETIVE STATEMENTS: Normal sinus rhythm Rightward axis Borderline ECG Compared to ECG 05/03/2015 17:04:46 No significant changes Electronically Signed On 08-15-18 18:23:19 CDT by Dale Ward
--- NOTE | 2018-08-15 18:43 | RAD REPORT ---
EXAM DESCRIPTION: USCarotid Artery Bilateral08/15/2018 6:25 pm CLINICAL HISTORY: Syncope COMPARISON: None FINDINGS: The velocity of the right internal carotid artery equals 81 cm/sec. The right ICA/CCA rati o .8 The velocity of the left internal carotid artery equals 76 cm/sec. The left ICA/CCA ratio .8 Plaque is not seen within the carotid arteries The vertebral arteries demonstrate antegrade flow IMPRESSION: Unremarkable exam NASCET criteria used. Mild 0-49% stenosis Moderate 50-69% stenosis Severe 70-99% stenosis
[2018-08-15 19:29] LABS: Urine Appearance CLEAR; Urine Bilirubin NEGATIVE (NEG); Urine Blood NEGATIVE (NEG); Urine Color YELLOW; Urine Glucose NEGATIVE (NEG); Urine Microscopic Reflex NO UMIC; Urine Protein NEGATIVE (NEG); Urine Urobilinogen 0.2 mg/dL (0.2-1.0)
[2018-08-16 00:07] VITALS: O2SAT 98
--- NOTE | 2018-08-16 01:15 | P.HP ---
Certification for Inpatient Patient admitted to: Observation With expected LOS: <2 Midnights Practitioner: I am a practitioner with admitting privileges, knowledge of patient current condition, hospital course, and medical plan of care. Services: Services provided to patient in accordance with Admission requirements found in Title 42 Section 412.3 of the Code of Federal Regulations Patient History Date of Service: 08/15/18 Reason for admission: Near syncope/headache History of Present Illness: patient is a 49-year-old female who works at [employer] when she had her near syncopal event. 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 She started having a headache and became really lightheaded. Her co-worker asked her if she felt okay and when she did not respond they decided to the call EMS. Patient denies passing out completely. Her workup in the emergency room has been unremarkable. She has had a carotid Doppler and lab studies. Will also get an echocardiogram and MRI of the brain as she states she is having a very severe headache(CT of the head had not been performed but with the degree of her symptoms and her age I believe the MRI may be able to give us more information). She has not hit her head and this has been going on since a near syncopal event. SHe also has an elevated BP-in ER she was 160/100 where she normally is 130/80. Allergies Simvastatin Allergy (Severe, Uncoded 05/03/15 21:59) Anaphylaxis Home Medications: Benazepril HCl 5 mg PO DAILY 05/03/15 Amlodipine [Norvasc*] 5 mg PO DAILY 08/15/18 - Past Medical/Surgical History -: HTN -: s/p Lap appy - Family History Mother Medical History: Cancer Notes: Breast cancer Father Medical History: Cancer Notes: skin cancer. bone cancer - Social History Smoking Status: Never smoker Alcohol use: No CD- Drugs: No Caffeine use: Yes Place of Residence: Home Review of Systems 10-point ROS is otherwise unremarkable Physical Examination - Vital Signs Temperature: 97.8 F Blood Pressure: 140/81 Pulse: 83 Respirations: 18 Pulse Ox (%): 98 - Physical Exam General: Alert, In no apparent distress, Oriented x3 HEENT: Atraumatic, PERRLA, Mucous membr. moist/pink, EOMI, Sclerae nonicteric Neck: Supple, 2+ carotid pulse no bruit, No LAD, Without JVD or thyroid abnormality Respiratory: Clear to auscultation bilaterally, Normal air movement Cardiovascular: Regular rate/rhythm, Normal S1 S2, No murmurs Gastrointestinal: Normal bowel sounds, Soft and benign, Non-distended, No tenderness Musculoskeletal: No clubbing, No swelling, No tenderness Integumentary: No rashes Neurological: Normal gait, Normal speech, Normal strength at 5/5 x4 extr, Normal tone, Sensation intact, Cranial nerves 3-12 intact, Normal affect Lymphatics: No axilla or inguinal lymphadenopathy - Studies Laboratory Data (last 24 hrs) 08/15/18 16:10: PT 11.8, INR 1.00 08/15/18 16:10: WBC 7.3, Hgb 14.8, Hct 43.5, Plt Count 384 08/15/18 16:10: Sodium 143, Potassium 3.9, BUN 17, Creatinine 0.78, Glucose 95, Magnesium 2.4, Total Bilirubin 0.3, AST 16, ALT 26, Alkaline Phosphatase 125 H, Lipase 241 Assessment & Plan - Problems (Diagnosis) (1) HTN (hypertension) Current Visit: Yes Status: Acute (2) Near syncope Current Visit: Yes Status: Acute (3) Malignant essential hypertension Current Visit: Yes Status: Acute (4) Headache Current Visit: Yes Status: Acute - Plan PLAN: 1. carotid Doppler and echocardiogram 2. MRI of the brain 3. strict blood pressure control 4. anti-inflammatories as needed as she is having myalgia 5. GI and DVT prophylaxis Discharge Plan: Home Plan to discharge in: 48 Hours - Advance Directives Does patient have a Living Will: No Does patient have a Durable POA for Healthcare: No - Code Status/Comfort Care Code Status Assessed: Yes Code Status: Full Code Critical Care: No Time Spent Managing PTS Care (In Minutes): 50
[2018-08-16] MEDS: NA CHLORIDE 0.9% 1,000 ML IV SCH ×2 (03:01→10:35)
[2018-08-16 04:45] LABS: Absolute Lymphocytes (CBC) 3.4 K/uL (0.7-4.9); MPV 7.9 fL (7.6-11.3)
[2018-08-16 04:50] LABS: Absolute Monocytes 0.5 K/uL (0.1-1.3); Absolute Neutrophil 3.3 K/uL (1.8-8.0); Basophils % 1.2 % (0-1.3); Eosinophils % 1.8 % (0-4.4); Hematocrit 43.9 % (36.0-45.0); Lymphocytes % 45.3 % (15.3-44.8); Monocytes % 6.8 % (3.3-12.3); RBC Red Blood Cell Count 5.01 M/uL (3.86-4.86)
[2018-08-16 05:08] LABS: ALT/SGPT 25 U/L (12-78); AST/SGOT 19 U/L (15-37); Albumin 3.6 g/dL (3.4-5.0); Alkaline Phosphatase 113 U/L (45-117); BUN Blood Urea Nitrogen 13 mg/dL (7-18); Bicarbonate 28 mmol/L (21-32); Bilirubin Total 0.4 mg/dL (0.2-1.0); Glucose Level 89 mg/dL (74-106); Phosphorus 3.7 mg/dL (2.5-4.9); Potassium 4.2 mmol/L (3.5-5.1); Protein, Total 7.5 g/dL (6.4-8.2); Sodium Level 144 mmol/L (136-145)
[2018-08-16 08:55] VITALS: TEMP 97.8
--- NOTE | 2018-08-16 10:43 | RAD REPORT ---
EXAM DESCRIPTION: MRI - Brain Wo Cont - 08/16/2018 9:41 am CLINICAL HISTORY: Syncope, right shoulder and leg numbness, headache COMPARISON: None. TECHNIQUE: Sagittal T1-weighted images were obtained along with axial PD, heavily T2-weighted and T2 -FLAIR images. Axial DWI and ADC mapping sequences were also obtained along with coronal heavily T2-w eighted images. FINDINGS: No intracranial hemorrhage, mass or acute infarction. There is no edema or shift of midlin e structures. No extra-axial fluid collections. [place]-matter/white matter junction is preserved. Signa l voids are seen as a normal finding in the major intracranial vessels. No significant atrophy. Patie nt has a few punctate areas of hyperintense T2 signal in the cerebral white matter. These are nonspec ific but most likely chronic ischemic change. Vasculitis or migraine headache changes are possible if there is matching clinical presentation. Demyelinization is possible but considered unlikely. No globe or orbital content abnormality. No sella or supra sella abnormality. No tonsillar ectopia. Mastoid air cells and paranasal sinuses are clear. IMPRESSION: No infarction, mass or acute finding. A few punctate cerebral white matter signal abnormalities are present most likely very early and mini mal chronic ischemic change. Vasculitis, migraine headache or demyelinization etiologies are possible but considered lesser in likelihood.
--- NOTE | 2018-08-16 11:14 | P.SSS ---
Patient History Date of Service: 08/16/18 Reason for admission: Near syncope/headache History of Present Illness: patient is a 49-year-old female who works at [employer] when she had her near syncopal event. 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 She started having a headache and became really lightheaded. Her co-worker asked her if she felt okay and when she did not respond they decided to the call EMS. Patient denies passing out completely. Her workup in the emergency room has been unremarkable. She has had a carotid Doppler and lab studies. Will also get an echocardiogram and MRI of the brain as she states she is having a very severe headache(CT of the head had not been performed but with the degree of her symptoms and her age I believe the MRI may be able to give us more information). She has not hit her head and this has been going on since a near syncopal event. SHe also has an elevated BP-in ER she was 160/100 where she normally is 130/80. Allergies Simvastatin Allergy (Severe, Uncoded 05/03/15 21:59) Anaphylaxis Home Medications: Benazepril HCl 5 mg PO DAILY 05/03/15 Amlodipine [Norvasc*] 5 mg PO DAILY 08/15/18 - Past Medical/Surgical History -: HTN -: s/p Lap appy - Family History Mother -: Cancer Notes: Breast cancer Father -: Cancer Notes: skin cancer. bone cancer - Social History Smoking Status: Never smoker Alcohol use: No CD- Drugs: No Caffeine use: Yes Place of Residence: Home Review of Systems 10-point ROS is otherwise unremarkable Physical Examination - Vital Signs Temperature: 97.8 F Blood Pressure: 140/81 Pulse: 83 Respirations: 18 Pulse Ox (%): 98 - Physical Exam General: Alert, In no apparent distress HEENT: Atraumatic, PERRLA, Mucous membr. moist/pink, EOMI, Sclerae nonicteric Neck: Supple, 2+ carotid pulse no bruit, No LAD, Without JVD or thyroid abnormality Respiratory: Clear to auscultation bilaterally, Normal air movement Cardiovascular: Regular rate/rhythm, Normal S1 S2 Gastrointestinal: Normal bowel sounds, No tenderness Musculoskeletal: No tenderness Integumentary: No rashes Neurological: Normal gait, Normal speech, Normal strength at 5/5 x4 extr, Normal tone, Normal affect Lymphatics: No axilla or inguinal lymphadenopathy - Studies Laboratory Data (last 24 hrs) 08/15/18 16:10: PT 11.8, INR 1.00 08/15/18 16:10: WBC 7.3, Hgb 14.8, Hct 43.5, Plt Count 384 08/15/18 16:10: Sodium 143, Potassium 3.9, BUN 17, Creatinine 0.78, Glucose 95, Magnesium 2.4, Total Bilirubin 0.3, AST 16, ALT 26, Alkaline Phosphatase 125 H, Lipase 241 - Diagnosis (Problem(s)) (1) Near syncope Current Visit: Yes Status: Resolved (2) HTN (hypertension) Current Visit: Yes Status: Chronic Qualifiers: Hypertension type: essential hypertension Qualified Code(s): I10 - Essential (primary) hypertension Treatment Summary: Overall during the hospital stay patient remained stable Patient was initially admitted to the hospital for near syncopal episode at work. Patient was brought in to the hospital by EMS who did her blood sugar on the way which was found to be low. Patient had extensive workup done here in the hospital to rule out any acute abnormality. MRI of the brain, echocardiogram and carotid Dopplers were done which were negative for any acute abnormality. MRI of the brain was consistent with chronic ischemic changes but no acute abnormality. Patient then was able to ambulate and tolerate her diet well had resolution of her symptoms and thus was discharged home under stable condition. Patient near syncopal episode was probably most likely secondary to hypoglycemia and was asked to follow up with her primary care provider and encouraged to eat a regular diet along with fluids. Patient demonstrate understanding and thus was discharged home under stable condition. - Disposition Disposition: ROUTINE DISCHARGE Condition: GOOD Patient Discharge Instructions: Please f.u with PCP in 1 to 2 week post discharge. NO new medication. You were admitted to the hosptial for Near Syncopal episode. You had Imaging and lab test done, which were within normal limits. You near Syncope was most likely due to Hypoglycemia. You are enouraged to take Fluids and food upon discharge. Diet: Regular Activity: Ad ana
--- NOTE | 2018-08-16 12:07 | ECHO ---
HEIGHT: 5 ft 6 in WEIGHT: 181 lb 0 oz DATE OF STUDY: 08/16/[address]: Ada Perez MD 2-DIMENSIONAL: YES M.MODE: YES DOPPLER: YES COLOR FLOW: YES TDS: NO PORTABLE: NO DEFINITY: NO BUBBLE STUDY: NO DIAGNOSIS: NEAR SYNCOPE CARDIAC HISTORY: CATHERIZATION: NO SURGERY: NO PROSTHETIC VALVE: NO PACEMAKER: NO MEASUREMENTS (cm) DIASTOLIC (NORMALS) SYSTOLIC (NORMALS) IVSd 1.0 (0.6-1.2) LA Diam (1.9-4.0) LVEF 79% LVIDd 4.2 (3.5-5.7) LVIDs 2.2 (2.0-3.5) %FS 47% LVPWd 1.0 (0.6-1.2) Ao Diam 2.4 (2.0-3.7) 2 DIMENSIONAL ASSESSMENT: RIGHT ATRIUM: NORMAL LEFT ATRIUM: NORMAL RIGHT VENTRICLE: NORMAL LEFT VENTRICLE: NORMAL TRICUSPID VALVE: NORMAL MITRAL VALVE: NORMAL PULMONIC VALVE: NORMAL AORTIC VALVE: NORMAL PERICARDIAL EFFUSION: NONE AORTIC ROOT: NORMAL LEFT VENTRICULAR WALL MOTION: NORMAL. DOPPLER/COLOR FLOW: MILD TRICUSPID REGURGITATION. NORMAL RIGHT VENTRICULAR SYSTOLIC PRESSURE. COMMENTS: NORMAL 2D ECHO. MILD TRICUSPID REGURGITATION. TECHNOLOGIST: KAYLEY FRANCIS
[2018-08-16 15:57] VITALS: BP 138/68
== END 2018-08-16 15:10 | disposition home or self-care (01) ==
LOC: ER 15:28 → ERHOLD 16:57 → 2ND 17:55
PROVIDERS: ADMIT Family Medicine; ATTEND Hospitalist
DX: R55 Syncope and collapse (principal); R51 Headache; I10 Essential (primary) hypertension
CPT/HCPCS: 96365 ×2; 96367 ×2; 96361; 93005; 93306; 87088; 85025 ×2; 87086; 80048; 36415; 83735 ×2; 84100; 85610; 80076; 81003 ×2; 84484 ×4; 83690; 80053; 83880; 71045; 93880; 70551; 94760 ×2; 96372; 96374; 99285; J1650; J0696; J7030 ×4; G0378 ×2